=== PATIENT | female | born 1985 | race American Indian/Alaskan Native ===

== ENCOUNTER 2021-06-06 08:57 | Emergency (ER) | payer SELFPAY ==
[2021-06-06] MEDS ORDERED: ACETAMINOPHEN 325 MG/10.15 ML ORAL LIQD UNIT DOSE PO ONE (09:36)
[2021-06-06] MEDS ORDERED: IBUPROFEN ORAL LIQD 100 MG/5 ML ORAL.LIQD PO ONE (09:36)
[2021-06-06] MEDS ORDERED: LIDOCAINE VISCOUS 2% 15 ML ORAL LIQD MM STA (09:37)
--- NOTE | 2021-06-06 09:37 | Emergency Department Report ---
ED General Adult HPI - General Chief complaint: Fever Stated complaint: SORE THROAT,LT TONSIL PUI?: No Time Seen by Provider: 06/06/21 09:20 Source: patient, RN notes reviewed Mode of arrival: Ambulatory Limitations: No Limitations - History of Present Illness Initial comments: The patient is a 35-year-old female. She is not known to myself previously. The patient reports that she is not . The patient presents to the ER today with a complaint of left-sided tonsil pain, sore throat, lack of cough, subjective fever, and swollen lymph nodes, as well as left-sided ear pain. The patient denies headache, midline neck pain, chest pain, abdominal pain, shortness of breath, vomiting, diaphoresis. She is able to drink. She has no dental pain. She has no stridor or trismus. In the emergency room, her symptoms are much improved with acetaminophen and ibuprofen.- The patient reports no loss of taste or smell. The patient reports no known Covid exposures. -: Gradual, days(s) Location: mouth Severity scale (0 -10): 8 Quality: aching Consistency: constant Improves with: medication Worsens with: eating - Related Data Previous Rx's Medication Instructions Recorded Last Taken Type Acetaminophen [Non-Aspirin Extra 650 mg PO Q6HR PRN #30 tablet 06/06/21 Unknown Rx Strength] Ibuprofen [Motrin] 600 mg PO Q8H PRN #30 tablet 06/06/21 Unknown Rx Penicillin V Potassium 500 mg PO Q8HR #29 tablet 06/06/21 Unknown Rx Allergies Allergy/AdvReac Type Severity Reaction Status Date / Time No Known Allergies Allergy Unverified 06/06/21 09:04 ED Review of Systems ROS: Stated complaint: SORE THROAT,LT TONSIL Other details as noted in HPI Constitutional: fever, weakness. denies: malaise Eyes: denies: eye discharge, vision change ENT: ear pain, throat pain. denies: dental pain, hearing loss, epistaxis, congestion Respiratory: denies: cough Cardiovascular: denies: chest pain Gastrointestinal: denies: abdominal pain Genitourinary: denies: dysuria Musculoskeletal: myalgia Hematological/Lymphatic: denies: easy bleeding ED Past Medical Hx - Past Medical History Previous Medical History?: Yes Hx Asthma: Yes - Medications Home Medications: Home Medications Medication Instructions Recorded Confirmed Last Taken Type Acetaminophen [Non-Aspirin Extra 650 mg PO Q6HR PRN #30 tablet 06/06/21 Unknown Rx Strength] Ibuprofen [Motrin] 600 mg PO Q8H PRN #30 tablet 06/06/21 Unknown Rx Penicillin V Potassium 500 mg PO Q8HR #29 tablet 06/06/21 Unknown Rx ED Physical Exam - General Limitations: No Limitations General appearance: alert, in no apparent distress - Head Head exam: Present: atraumatic, normocephalic - Eye Eye exam: Present: normal appearance, EOMI. Absent: nystagmus - ENT ENT exam: Present: normal orophraynx (There is no dental tenderness), mucous membranes moist, TM's normal bilaterally, normal external ear exam, other (Pharyngeal exudates noted. There is no asymmetry in the tonsillar pillars. Uvula is midline. There is no elevation of the base of the tongue. There is no stridor.) - Neck Neck exam: Present: normal inspection, lymphadenopathy. Absent: tenderness, meningismus - Respiratory Respiratory exam: Present: normal lung sounds bilaterally. Absent: respiratory distress, wheezes, rales, rhonchi, stridor, decreased breath sounds - Cardiovascular Cardiovascular Exam: Present: normal rhythm, tachycardia, normal heart sounds. Absent: bradycardia, irregular rhythm, systolic murmur, diastolic murmur, rubs, gallop - GI/Abdominal GI/Abdominal exam: Present: soft. Absent: distended, tenderness, guarding, rebound, rigid, pulsatile mass - Extremities Exam Extremities exam: Present: normal inspection, full ROM, other (2+ pulses noted in the bilateral upper and lower extremities. There is no palpable cord. negative Homans sign. Muscular compartments are soft. The pelvis is stable.). Absent: pedal edema, calf tenderness - Back Exam Back exam: Present: normal inspection, full ROM. Absent: tenderness, CVA tenderness (R), CVA tenderness (L), paraspinal tenderness, vertebral tenderness - Neurological Exam Neurological exam: Present: alert, oriented X3, normal gait, other (No facial droop. Tongue midline. Extraocular movements intact bilaterally. Facial sensation intact to light touch in V1, V2, V3 distribution bilaterally. 5 and a 5 strength in 4 extremities. Sensation intact to light touch in 4 extremities.). Absent: motor sensory deficit - Psychiatric Psychiatric exam: Present: normal affect, normal mood - Skin Skin exam: Present: warm, dry, intact, normal color. Absent: rash ED Course Vital Signs 06/06/21 06/06/21 09:01 09:51 Temperature 100.1 F H Pulse Rate 125 H Respiratory 18 18 Rate Blood Pressure 137/95 [Left] O2 Sat by Pulse 97 98 Oximetry - Pulse Oximetry Interpretation Digit-Finger Initial Pulse Oximetry Readin O2 Sat by Pulse Oximetry: 99 Actions Taken: none ED Medical Decision Making - Lab Data Vital Signs 06/06/21 06/06/21 09:01 09:51 Temperature 100.1 F H Pulse Rate 125 H Respiratory 18 18 Rate Blood Pressure 137/95 [Left] O2 Sat by Pulse 97 98 Oximetry Lab Results 06/06/21 Range/Units Unknown Group A Strep Rapid Positive A (Negative) - Medical Decision Making Differential diagnosis, including but not limited to: Pharyngitis, viral versus bacterial versus strep Assessment and plan: 35-year-old female, with low-grade fever, evidence of pharyngitis, now with resolved tachycardia, heart rate currently 93 bpm, saturating 99% on room air. Patient drinking without difficulty. She has no stridor, she is protecting her airway, she is noted to be on her cellular phone, her oropharyngeal exam shows a midline uvula, without elevation of the base of the tongue, she is not stridulous, there is no tenderness underneath the tongue itself, and there is no trismus or malocclusion. She has pharyngeal exudates bilaterally, left greater than right. At this point time, there is no asymmetry to the left tonsil. S uspect pharyngitis, without deep space neck infection. Strep screen positive. Patient felt improved with acetaminophen and ibuprofen. Discharged with as needed Tylenol and Motrin, discharged with penicillin. Also instructed patient as to how she may download the good Rx affordable prescription application, and purchase affordable prescriptions. Extensive discussion had with patient. She articulated understanding. All questions answered. Return precautions are reviewed Critical care attestation.: If time is entered above; I have spent that time in minutes in the direct care of this critically ill patient, excluding procedure time. ED Disposition Clinical Impression: Pharyngitis Disposition: HOME / SELF CARE / HOMELESS Is pt being admited?: No Does the pt Need Aspirin: No Condition: Good Instructions: Strep Throat, Adult, [id number] Additional Instructions: Advance diet as tolerated. Drink plenty of fluids. Take the pain medication as needed and directed. Take the antibiotics as directed. Do not smoke cigarettes or consume alcohol. Follow-up with your primary care doctor in 5 to 7 days for repeat checkup and evaluation. Rapid strep screen was positive, suggesting strep pharyngitis. Cultures were sent, please have your primary care doctor contact the medical records department to obtain culture results. Please return to the emergency room right away with new pain, worsened pain, migration of pain, projectile vomiting, change in mental status, confusion, inability to tolerate liquid feeds, new, worsened or different symptoms not present on the initial emergency room evaluation, inability to speak, inability to breathe, elevation of the base of the tongue, inability to open up the jaw, severe neck pain. Return to the emergency room right away for any new, worsened or different symptoms not present on the initial emergency room evaluation Prescriptions: Ibuprofen [Motrin] 600 mg PO Q8H PRN #30 tablet PRN Reason: Pain Acetaminophen [Non-Aspirin Extra Strength] 650 mg PO Q6HR PRN #30 tablet PRN Reason: Pain , Severe (7-10) Penicillin V Potassium 500 mg PO Q8HR #29 tablet Referrals: PRIMARY CARE [Primary Care Provider] - 3-5 Days [facility] [Provider Group] - 3-5 Days [facility] [Outside] - 3-5 Days Forms: Work/School Release Form(ED)
[2021-06-06 10:40] VITALS: BP 128/77
[2021-06-06] MEDS ORDERED: PENICILLIN V POTASSIUM 250 MG TAB PO SCH (11:00)
== END 2021-06-06 11:07 | disposition home or self-care (01) ==
LOC: ED 08:57
DX: J02.9 Acute pharyngitis, unspecified (principal); Z79.899 Other long term (current) drug therapy
CPT/HCPCS: 87430; 99283